=== PATIENT | female | born 1945 | race Caucasian/White ===

== ENCOUNTER 2017-04-18 11:31 | Outpatient (CLI) | payer OTHER ==
[~2017-04-18 11:31] MED LIST: AMLODIPINE BES2.5 MG PO; AVALIDE 300-12.1 TA1; AVALIDE 300-12.1 TAB PO; INTESTINEX1 CA1 PO; LOPRESSOR25 MG; METOPROLOL SUCC25 MG PO; ZOCOR5 MG PO
== END 2017-04-18 15:45 | disposition home or self-care (01) ==
LOC: TOM 11:31
DX: I10 Essential (primary) hypertension (principal); C50.411 Malignant neoplasm of upper-outer quadrant of right female breast
CPT/HCPCS: 70470; Q9965

== ENCOUNTER 2017-05-06 12:08 | Outpatient (CLI) | payer OTHER | END 2017-05-06 12:15 | disposition home or self-care (01) | LOC: LAB 12:08 | DX: I11.9 Hypertensive heart disease without heart failure (principal); E78.2 Mixed hyperlipidemia; E04.8 Other specified nontoxic goiter ==

== ENCOUNTER 2017-08-26 14:05 | Outpatient (CLI) | payer OTHER | END 2017-08-26 14:17 | disposition home or self-care (01) | LOC: LAB 14:05 | DX: K58.9 Irritable bowel syndrome, unspecified (principal); K52.831 Collagenous colitis; E03.8 Other specified hypothyroidism; B82.9 Intestinal parasitism, unspecified; R10.84 Generalized abdominal pain; K52.89 Other specified noninfective gastroenteritis and colitis ==

== ENCOUNTER 2017-09-16 12:29 | Outpatient (CLI) | payer OTHER | END 2017-09-16 12:33 | disposition home or self-care (01) | LOC: LAB 12:29 | DX: D64.89 Other specified anemias (principal); R74.0 Nonspecific elevation of levels of transaminase and lactic acid dehydrogenase [LDH]; I10 Essential (primary) hypertension; C50.411 Malignant neoplasm of upper-outer quadrant of right female breast; E55.9 Vitamin D deficiency, unspecified; M81.0 Age-related osteoporosis without current pathological fracture ==

== ENCOUNTER 2018-02-19 12:05 | Outpatient (CLI) | payer OTHER | END 2018-02-19 12:11 | disposition home or self-care (01) | LOC: LAB 12:05 | DX: D64.89 Other specified anemias (principal); R74.0 Nonspecific elevation of levels of transaminase and lactic acid dehydrogenase [LDH]; C50.412 Malignant neoplasm of upper-outer quadrant of left female breast; Z17.0 Estrogen receptor positive status [ER+] ==

== ENCOUNTER → 2018-08-26 13:48 | Outpatient (CLI) | payer OTHER | END | disposition home or self-care (01) | LOC: LAB 13:48 | DX: D64.89 Other specified anemias (principal); R74.0 Nonspecific elevation of levels of transaminase and lactic acid dehydrogenase [LDH]; C50.411 Malignant neoplasm of upper-outer quadrant of right female breast ==

== ENCOUNTER 2019-01-08 11:25 | Outpatient (CLI) | payer OTHER | END 2019-01-08 15:00 | disposition home or self-care (01) | LOC: LAB 11:25 | DX: I11.9 Hypertensive heart disease without heart failure (principal); E78.2 Mixed hyperlipidemia ==

== ENCOUNTER → 2019-03-01 11:26 | Outpatient (CLI) | payer OTHER | END | disposition home or self-care (01) | LOC: LAB 11:26 | DX: D64.89 Other specified anemias (principal); R74.0 Nonspecific elevation of levels of transaminase and lactic acid dehydrogenase [LDH]; E78.00 Pure hypercholesterolemia, unspecified; C50.412 Malignant neoplasm of upper-outer quadrant of left female breast; Z17.0 Estrogen receptor positive status [ER+] ==

== ENCOUNTER → 2019-07-05 12:45 | Outpatient (CLI) | payer OTHER | END | disposition home or self-care (01) | LOC: LAB 12:45 | DX: E03.8 Other specified hypothyroidism (principal); I11.9 Hypertensive heart disease without heart failure; E78.00 Pure hypercholesterolemia, unspecified; E13.69 Other specified diabetes mellitus with other specified complication ==

== ENCOUNTER 2019-08-20 11:40 | Outpatient (CLI) | payer OTHER | END 2019-08-20 11:46 | disposition home or self-care (01) | LOC: LAB 11:40 | DX: N39.0 Urinary tract infection, site not specified (principal) ==

== ENCOUNTER 2019-10-07 08:50 | Outpatient (CLI) | payer OTHER | END 2019-10-07 08:55 | disposition home or self-care (01) | LOC: LAB 08:50 | PROVIDERS: ATTEND Internal Medicine Hematology & Oncology | DX: D64.89 Other specified anemias (principal); I10 Essential (primary) hypertension; E78.2 Mixed hyperlipidemia; C50.412 Malignant neoplasm of upper-outer quadrant of left female breast ==

== ENCOUNTER 2020-11-01 07:48 | Outpatient (CLI) | payer OTHER | END 2020-11-01 07:53 | disposition home or self-care (01) | LOC: SONOGRAMA 07:48 | PROVIDERS: ATTEND Internal Medicine Cardiovascular Disease | DX: R10.84 Generalized abdominal pain (principal); I11.9 Hypertensive heart disease without heart failure; C50.112 Malignant neoplasm of central portion of left female breast ==

== ENCOUNTER 2022-05-22 13:41 | Outpatient (CLI) | payer OTHER | END 2022-05-22 13:43 | disposition home or self-care (01) | LOC: NUCLEAR 13:41 | PROVIDERS: ATTEND Specialist | DX: M81.0 Age-related osteoporosis without current pathological fracture (principal) ==

== ENCOUNTER 2023-01-24 14:06 | Outpatient (CLI) | payer OTHER | END 2023-01-24 14:14 | disposition home or self-care (01) | LOC: RAD 14:06 | PROVIDERS: ATTEND Internal Medicine Hematology & Oncology | DX: H71.2 Cholesteatoma of mastoid (principal); H70.899 Other mastoiditis and related conditions, unspecified ear ==

== ENCOUNTER 2024-11-11 15:55 | Emergency (ER) | payer OTHER ==
[~2024-11-11] VITALS: Ht 152.4 cm; Wt 54.9 kg
[2024-11-11] MEDS ORDERED: 0.9 % SODIUM CHLORIDE 1,000 ML IV ONE (17:30)
[2024-11-11 17:51] LABS: BASO % 0.7 % (0.1-1.2); EOS # 0.01 (0.04-0.54); EOS % 0.1 % (0.7-7.0); LYMPH # 2.55 (1.18-3.74); LYMPH % 19.4 % (19.3-53.1); MEAN PLATELET VOLUME 11.20 fl (9.4-12.4); MONO # 1.16 (0.24-0.82); MONO % 8.8 % (4.7-12.5); NEUT # 9.27 (1.56-6.13); NEUT % 70.5 % (34.0-71.1); RED CELL DISTRIBUTION WIDTH 12.6 % (11.6-14.4)
[2024-11-11 18:11] LABS: INR 1.04
[2024-11-11 18:17] LABS: ALT/SGPT 31.0 U/L (12-78); AST/SGOT 56.0 U/L (15-37); BILIRUBIN TOTAL 0.77 mg/dL (0.3-1.2); BUN CREA RATIO 26.0 (7.0-25.0); CREATININE SERUM 0.82 mg/dL (0.55-1.02); GFR 67.42; GLOBULINA 3.6 G/DL (2.4-3.5); GLUCOSE FASTING 104.0 mg/dL (65-100); OSMOLALITY SERUM 292.0 MOSM/KG (275-295)
[2024-11-11] MEDS ORDERED: CIPROFLOXACIN IN 5 % DEXTROSE 400 MG/200 ML PIGGYBAG IV ONE ×2 (19:30→20:00)
[2024-11-11 20:58] LABS: URINE APPEARANCE Clear; URINE BILIRRUBIN Negative (NEGATIVE); URINE BLOOD Negative; URINE COLOR Yellow; URINE EPITHELIAL CELLS 12.1 uL (0.0-38.8); URINE GLUCOSE Negative (NEGATIVE); URINE KETONE 15 (NEGATIVE); URINE LEUKOCYTE Small; URINE NITRATE Negative; URINE PROTEIN Trace (NEGATIVE); URINE RBC 11.5 uL (0.0-20.8); URINE UROBILINOGEN 0.2 E.U./dl; URINE WBC 60.9 uL (0.0-23.2)
[2024-11-11] MEDS ORDERED: PROBIOTIC1 EAC2 PO (21:28)
[2024-11-11] MEDS ORDERED: METRONIDAZOLE500 MG PO (21:28)
[2024-11-11] MEDS ORDERED: CIPRO500 MG PO (21:28)
[2024-11-11] MEDS ORDERED: PEPCID AC20 MG PO (21:28)
[2024-11-11 22:13] LABS: URINE BACTERIA > 9821.5 uL (0.0-1933); URINE CAST 0.43 uL (0.0-1.40)
== END 2024-11-11 22:29 | disposition home or self-care (01) ==
LOC: ER 16:11
PROVIDERS: General Practice
DX: R19.7 Diarrhea, unspecified (principal); I10 Essential (primary) hypertension
CPT/HCPCS: 36415; 74177; 96365; 96366; 99284; J0744; J7030; Q9965